=== PATIENT | male | born 1975 | race Caucasian/White ===

== ENCOUNTER 2021-05-08 16:08 | Emergency (ER) | payer SELFPAY ==
[~2021-05-08] VITALS: Ht 177.8 cm; Wt 91.0 kg
[2021-05-08 16:14] VITALS: BP 137/98
[2021-05-08] MEDS ORDERED: SODIUM CHLORIDE 0.9% 1,000 ML IV ONE (16:30)
== END 2021-05-08 17:44 | disposition left against medical advice (07) ==
LOC: ER 16:08
DX: R55 Syncope and collapse (principal); E11.9 Type 2 diabetes mellitus without complications
CPT/HCPCS: 93005; 99283; J7030; 80305